=== PATIENT | male | born 1980 | race Caucasian/White ===

== ENCOUNTER 2019-03-21 11:12 | Emergency (ER) | payer MEDICAID ==
[~2019-03-21] VITALS: Ht 177.8 cm; Wt 127.0 kg
[2019-03-21 12:07] VITALS: BP 134/85
[2019-03-21] MEDS ORDERED: KETOROLAC TROMETH 60MG/2ML VIAL IM ONE (13:45)
== END 2019-03-21 14:21 | disposition home or self-care (01) ==
LOC: ER 11:12
DX: M72.2 Plantar fascial fibromatosis (principal); F17.210 Nicotine dependence, cigarettes, uncomplicated; E66.01 Morbid (severe) obesity due to excess calories; Z68.41 Body mass index [BMI] 40.0-44.9, adult; Z90.49 Acquired absence of other specified parts of digestive tract
CPT/HCPCS: 73630; 96372; 99283; J1885